=== PATIENT | male | born 1980 | race Caucasian/White ===

== ENCOUNTER 2022-10-05 18:06 | Emergency (ER) | payer OTHER, SELFPAY ==
[2022-10-05 18:08] VITALS: BP 151/103; PULSE 96; RESP 18; TEMP 36.2; O2SAT 98; BMI 45.8
--- NOTE | 2022-10-05 18:35 | EX.ED.UPPERE ---
HPI History of Present Illness Chief Complaint: Upper Extremity Injury Informant: patient Occured/Mechanism Mechanism/Context: Yes same level fall Narrative Narrative: Patient present secondary to right elbow and right rib pain. Patient was walking into work today when he rolled his right ankle and fell landing on his right side with his arm caught underneath him. He is complaining of pain and swelling to his right elbow as well as some pain to the right anterior ribs. He is right-hand dominant. Denies striking his head or loss of consciousness. He does drive a forklift with hand controls and was having difficulty doing that with his right arm. PFSH PFS Medical History no medical history no medical history Home Medications NK 10/05/22 [History Last Taken Unknown] Allergy/AdvReac Type Severity Reaction Status Date / Time No Known Allergies Allergy Verified 03/30/20 15:24 Social History Smoking Status: Never smoker ROS ROS ED Constitutional Constitutional ED: Denies chills or fever(s) Eyes Eyes: Denies change in vision ENT ENT ED: Denies rhinorrhea or sore throat Cardiovascular Cardiovascular: Reports chest pain; Denies palpitations Respiratory/Chest Respiratory/Chest: Denies cough or dyspnea Gastrointestinal Gastrointestinal: Denies abdominal pain, nausea or vomiting Genitourinary Genitourinary ED: Denies dysuria Musculoskeletal Musculoskeletal: Reports extremity pain; Denies back pain Integumentary Denies Abrasions or rash Neurologic Neurologic: Denies headache(s) or weakness Allergic/Immunologic Allergic/Immunologic ED: Denies lip swelling or urticaria EXAM Physical Exam Const Vital Signs: 10/05/22 18:08 Temperature 97.1 F L Temperature Source Temporal Pulse Rate 96 Respiratory Rate 18 Blood Pressure 151/103 H Blood Pressure Mean 119 Pulse Ox 98 Oxygen Delivery Method Room Air Positive well nourished and well developed General Appearance ED: well developed HEENT Reports normocephalic and head/scalp atraumatic Eyes PERRL and EOMs intact bilaterally Neck supple Chest Wall inspection of chest normal Chest Narrative: Right anterior chest wall tenderness. No crepitus. No abrasions or ecchymosis. Resp normal respiratory effort and clear to auscultation bilaterally Cardio regular rate and regular rhythm GI normal to inspection, nondistended, normoactive bowel sounds Palpation: soft Back/Spine no CVA tenderness Extremity Extremity Narrative: Edema and ecchymosis to the right elbow. Good range of motion with slow purposeful movement. Strong distal pulses with strong hand grasp. Normal sensation. No tenderness at the shoulder. Neuro oriented x3 and no sensory deficits noted Sensorium / Orientation: alert Motor Exam: strength 5/5 throughout Psych mental status grossly normal MDM MDM MDM Narrative Medical decision making narrative: Patient sent for elbow and right rib x-rays to rule out fracture. Radiography Diagnostic Testing: Radiology Impression Elbow X-Ray 10/05/22 18:40 IMPRESSION: No acute bony abnormality. Electronically Signed: Ang Green MD at 19:06 EDT , Ribs w/Chest X-Ray 10/05/22 18:40 IMPRESSION: No evidence of displaced rib fracture. Electronically Signed: Ang Green MD at 19:09 EDT , Treatment and Re-Evaluation Narrative: Right elbow x-ray per my interpretation feels no obvious fracture. Right rib series per my interpretation reveals no obvious fracture or pneumothorax. Radiology interpretation is reviewed and agrees. Stephen wrap is applied to the right elbow. Test results are discussed with him. I will write him work restrictions. Discharge Plan Triage Chief Complaint: Upper Extremity Injury ED Provider: Deisy Chaidez Dx/Rx/DC Orders Clinical Impression: Fall, Contusion of elbow, right, Chest wall contusion Instructions: ED Contusion, Elbow, ED Chest Wall Contusion Prescriptions: No Action NK Stand Alone Forms: Work Status Form Primary Care Provider: Care Physician,No Primary Referrals: Corporate,Care [Group of Physicians] - 3-5 Days Care Physician,No Primary [Primary Care Provider] - Disposition Disposition: Home, Self Care
--- NOTE | 2022-10-05 18:40 | RAD_ITS ---
INDICATION: Trauma, fall, right elbow pain and swelling EXAMINATION/TECHNIQUE: X-RAY - RIGHT XR Elbow Min 3 Views 3 VIEWS COMPARISON: None. FINDINGS: SOFT TISSUES: No soft tissue swelling or gas. No radiopaque foreign body. BONES/JOINTS: No acute fracture or subluxation.. Joint spaces anatomically aligned. No sclerotic or destructive changes observed. RAD/Elbow min 3 Views IMPRESSION: No acute bony abnormality. Electronically Signed: Ang Green MD at 19:06 EDT ,
--- NOTE | 2022-10-05 18:40 | RAD_ITS ---
INDICATION: Trauma, fall, right anterior and axillary rib pain EXAMINATION/TECHNIQUE: X-RAY - XR Ribs Unilateral W/ PA Chest Min 3 Views COMPARISON: None. FINDINGS: SOFT TISSUES: No soft tissue swelling or gas. BONES: No displaced fracture. No sclerotic or destructive changes observed. VISUALIZED LUNGS: Clear. No pneumothorax. RAD/Ribs Uni Min 3V w/PA Chest IMPRESSION: No evidence of displaced rib fracture. Electronically Signed: Ang Green MD at 19:09 EDT ,
== END 2022-10-05 20:05 | disposition home or self-care (01) ==
PROVIDERS: Emergency Provider Emergency Medicine; Visit Provider Emergency Medicine
DX: S20.20XA Contusion of thorax, unspecified, initial encounter (principal); M25.521 Pain in right elbow; Y99.0 Civilian activity done for income or pay; W23.0XXA Caught, crushed, jammed, or pinched between moving objects, initial encounter; W18.30XA Fall on same level, unspecified, initial encounter; S50.01XA Contusion of right elbow, initial encounter
CPT/HCPCS: 71101; 73080; 99282